=== PATIENT | male | born 1965 | race Two or more races ===

== ENCOUNTER 2024-12-24 09:00 | Outpatient (CLI) | payer OTHER ==
[2024-12-24 09:45] LABS: Hematocrit 41.9 % (41.0-53.0); Hemoglobin 14.4 g/dL (13.5-17.5); Mean Corpuscular Hemoglobin 30.0 pg (28.0-32.0); Mean Corpuscular Volume 87.1 fL (80.0-100.0); Nucleated Red Blood Cells % 0.0 %; Urine Protein, UAD 2+ (Negative)
[2024-12-24 09:59] LABS: Alanine Aminotransferase 16 U/L (7-40); Albumin 4.1 g/dL (3.2-4.8); Alkaline Phosphatase 91 U/L (46-116); Anion Gap 9 (5-15); BUN/Creatinine Ratio 19.8 (10.0-20.0); Blood Urea Nitrogen 21 mg/dL (9-23); Calcium 9.3 mg/dL (8.7-10.4); Carbon Dioxide 28 mmol/L (20-31); Chloride 107 mmol/L (98-107); Potassium 4.6 mmol/L (3.5-5.1); Sodium 144 mmol/L (136-145); Total Protein 6.6 g/dL (5.7-8.2); Triglycerides 88 mg/dL (< 150)
[2024-12-24 10:00] LABS: Bilirubin, Total 0.4 mg/dL (0.2-1.0); Cholesterol 193 mg/dL (< 200); HDL Cholesterol 43 mg/dL (40-59)
[2024-12-24 10:03] LABS: Glucose 152 mg/dL (74-106)
[2024-12-24 10:48] LABS: Microalb/Creat Ratio, Urine 1581.0
== END 2024-12-24 17:00 | disposition home or self-care (01) ==
LOC: LAB 09:00
PROVIDERS: ATTEND Internal Medicine
DX: E11.69 Type 2 diabetes mellitus with other specified complication
CPT/HCPCS: 36415; 80053; 80061; 81001; 82043; 82570; 83036; 84439; 84443; 85025